=== PATIENT | female | born 1990 | race Caucasian/White ===

== ENCOUNTER 2018-06-22 09:53 | Emergency (ER) | payer OTHER ==
[~2018-06-22] VITALS: Ht 180.3 cm; Wt 61.2 kg
[~2018-06-22 09:53] MED LIST: IBUPROFEN600 MG PO; NORCO 5-325 TA1 EACH PO
[2018-06-22] MEDS ORDERED: MIRENA1 EACH (10:19)
[2018-06-22] MEDS ORDERED: ONDANSETRON ODT8 MG PO (12:04)
[2018-06-22] MEDS ORDERED: NORCO 5-325 TA1 EACH PO (12:04)
[2018-06-24] MEDS ORDERED: HYDROMORPHONE HC2 MG PO (10:20)
[2018-06-24] MEDS ORDERED: PROMETHAZINE HC25 M1 PO (10:20)
== END 2018-06-22 12:46 | disposition home or self-care (01) ==
LOC: ED 09:53
DX: G89.18 Other acute postprocedural pain (principal); R10.2 Pelvic and perineal pain; F17.200 Nicotine dependence, unspecified, uncomplicated; Z79.899 Other long term (current) drug therapy
CPT/HCPCS: 80053; 81001; 83690; 84703; 85025; 96361; 96374; 96375; 99283; J1885; J2405; J7030

== ENCOUNTER 2018-12-03 00:50 | Emergency (ER) | payer OTHER ==
[~2018-12-03] VITALS: Ht 180.3 cm; Wt 56.2 kg
[~2018-12-03 00:50] MED LIST changes: +HYDROMORPHONE HC2 MG PO; +MIRENA1 EACH; +ONDANSETRON ODT8 MG PO; +PROMETHAZINE HC25 M1 PO
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
== END 2018-12-03 03:48 | disposition short-term general hospital (02) ==
LOC: ED 00:50
PROC: 2W3CX1Z Immobilization of Right Lower Arm using Splint (ICD-10-PCS; principal; 2018-12-03)
DX: S57.81XA Crushing injury of right forearm, initial encounter (principal); S52.301B Unspecified fracture of shaft of right radius, initial encounter for open fracture type I or II; S52.611B Displaced fracture of right ulna styloid process, initial encounter for open fracture type I or II; F17.200 Nicotine dependence, unspecified, uncomplicated; Z79.899 Other long term (current) drug therapy; V49.9XXA Car occupant (driver) (passenger) injured in unspecified traffic accident, initial encounter; Z23 Encounter for immunization
CPT/HCPCS: 29125; 73090; 73120; 80053; 82150; 82550; 83690; 84703; 85025; 86850; 86900; 86901; 90471; 90715; 96374; 96375; 99284-25; G0480; J0690; J1170; J1580; J2405